=== PATIENT | male | born 1990 | race Caucasian/White ===

== ENCOUNTER 2023-11-22 19:17 | Emergency (ER) | payer BC, MEDICAID, SELFPAY ==
[2023-11-22 19:20] VITALS: BP 148/80; PULSE 81; RESP 20; TEMP 36.6; O2SAT 98
--- NOTE | 2023-11-22 19:36 | ECG_ITS ---
Measurements Intervals [place] Rate: 83 P: 49 NE: 150 QRS: 76 QRSD: 80 T: 38 QT: 341 QTc: 402 Interpretive Statements SINUS RHYTHM WITH SINUS ARRHYTHMIA BASELINE ARTIFACT- V1 NORMAL ECG COMPARED TO ECG 12/15/2018 19:56:15 SINUS ARRHYTHMIA NOW PRESENT Electronically Signed On 11-22-2023 20:11:37 CDT by Buck Ronquillo D.O.
--- NOTE | 2023-11-22 19:36 | ED.GENADULT ---
HPI - General Adult General Chief complaint: Anxiety Stated complaint: anxiety, chest tightness Time Seen by Provider: 11/22/23 19:29 History of Present Illness HPI narrative: The patient is a 33-year-old male with history of depression and anxiety, who used to be on fluoxetine 20 mg daily but has not taken that for some time. He does not smoke cigarettes. He has been going through a custody ngo with his ex regarding his son. He as a result has exchanged several text messages today and now is feeling quite anxious. This is his 3rd anxiety attack in the last 6 weeks. He was previously seen in another ER about 2 and half weeks ago. He complains of chest discomfort and shortness of breath and feeling shaky jittery anxious , and fidgety. No vomiting or nausea. No fevers or chills or URI or UTI symptoms. No cough rhinorrhea. No diaphoresis. Related Data Allergies Allergy/AdvReac Type Severity Reaction Status Date / Time No Known Allergies Allergy Unknown Verified 09/24/19 17:01 Review of Systems Review of Systems: All systems reviewed & are unremarkable except as noted in HPI and below Constitutional: Constitutional: Denies chills, Denies excessive sweating, Denies fatigue, Denies fever(s), Denies headache(s) and Denies weakness Eyes: Eyes: Denies change in vision and Denies photophobia ENT: Denies dysphagia, Denies dizziness, Denies headache(s), Denies lip swelling, Denies nasal congestion, Denies sore throat and Denies tongue swelling Cardiovascular: Cardiovascular: Reports chest pain ( chest discomfort), Denies syncope, Reports rapid heart rate ( subjective palpitations) and Reports dyspnea ( subjective dyspnea) Respiratory: Respiratory: Denies cough and Denies wheezing Gastrointestinal: Gastrointestinal: Denies abdominal pain, Denies constipation, Denies dysphagia, Denies diarrhea, Denies nausea and Denies vomiting Genitourinary: Genitourinary: Denies hematuria, Denies dysuria, Denies urinary frequency and Denies urinary urgency Musculoskeletal: Musculoskeletal: Denies back pain, Denies myalgias, Denies arthralgias, Denies joint swelling and Denies numbness Integumentary/Breasts: Skin/Breast: Denies pruritus, Denies erythema and Denies rash Neurologic: Denies confusion, Denies dizziness, Denies syncope, Denies headache(s), Denies focal weakness, Denies numbness and Denies weakness Psychiatric: Psychiatric: Reports anxiety and Denies confusion Endocrine: Endocrine: Denies excessive sweating and Denies fatigue Hematologic/Lymphatic: Hematologic/Lymphatic: Denies easy bleeding and Denies easy bruising Allergic/Immunologic: Allergic/Immunologic: Denies lip swelling, Denies tongue swelling and Denies wheezing PMFSH Past Medical History Medical History Anxiety Depression Surgical History Surgical History History of appendectomy Social History Social History Smoking status: Never smoker Alcohol intake: former Substance use: never Substance use type: does not use Occupation/Education: occupation Gender identity (if verbalized by the patient): Male Exam Const: General: healthy appearing, no acute distress, alert and well nourished Nutritional Appearance: well nourished Orientation/consciousness: patient oriented x3 Limitations: no limitations Other: anxious, fidgety, restless, unable to lie still and be comfortable in any 1 position HENMT: Head: normal to inspection Ears: external ears normal Face/Nose/Sinus: normal facial exam Face and sinus: normal facial exam Mouth: Yes moist mucous membranes Throat: posterior oropharynx normal Eyes: Conjunctivae: conjunctivae normal Pupils: Equal, round and reactive pupils present EOM: EOMs intact bilaterally Neck: Neck: normal visual inspection and no meningeal signs Chest: Chest palp
[2023-11-22] MEDS: ALPRAZolam (*CRX) 0.5 MG TABLET PO (19:42)
[2023-11-22 20:30] VITALS: BP 142/85; PULSE 82; RESP 18; O2SAT 98
--- NOTE | 2023-11-22 20:35 | PC.NURSE ---
Pt resting and states he is starting to feel a little more relaxed, still somewhat anxious and asking Am I going to be alright . Pt reassured that his sxs are all anxiety related and that the medications Rx'd will be help his sxs. Pt resting c lights off.
[2023-11-22] MEDS: hydrOXYzine HCL 25 MG TABLET 50 MG PO (20:53)
[2023-11-22 21:14] VITALS: BP 134/81; PULSE 78; RESP 18; TEMP 36.8; O2SAT 98
== END 2023-11-22 21:14 | disposition home or self-care (01) ==
PROVIDERS: Emergency Provider Emergency Medicine
DX: F41.8 Other specified anxiety disorders (principal)
CPT/HCPCS: 93005; 99283; A9270